=== PATIENT | male | born 1935 | race Native Hawaiian/Other Pacific Islander ===

== ENCOUNTER 2020-07-27 10:00 | Inpatient (IN) | payer OTHER | END 2020-08-10 09:00 | disposition still patient (30) | LOC: PAVC 10:00 | PROVIDERS: ADMIT Internal Medicine; ATTEND Internal Medicine ==

== ENCOUNTER 2020-07-29 07:00 | Outpatient (CLI) | payer OTHER ==
[2020-08-12 09:47] LABS: PLATELET COUNT 233 K/uL (142-355)
[2020-08-12 09:49] LABS: POTASSIUM 6.1 mmol/L (3.6-5.2)
== END 2020-07-29 09:00 | disposition home or self-care (01) ==
LOC: LAB 07:00
PROVIDERS: ATTEND Internal Medicine
DX: I50.9 Heart failure, unspecified (principal); E88.09 Other disorders of plasma-protein metabolism, not elsewhere classified; I25.10 Atherosclerotic heart disease of native coronary artery without angina pectoris; J44.9 Chronic obstructive pulmonary disease, unspecified; N18.9 Chronic kidney disease, unspecified; N40.1 Benign prostatic hyperplasia with lower urinary tract symptoms; I12.9 Hypertensive chronic kidney disease with stage 1 through stage 4 chronic kidney disease, or unspecified chronic kidney disease; G47.33 Obstructive sleep apnea (adult) (pediatric); I48.20 Chronic atrial fibrillation, unspecified; Z79.01 Long term (current) use of anticoagulants; Z86.718 Personal history of other venous thrombosis and embolism; Z79.899 Other long term (current) drug therapy
CPT/HCPCS: 80053; 80061; 82306; 82607; 82728; 83036; 83540; 83880; 84153; 84443; 85027; 87081

== ENCOUNTER 2020-07-31 14:46 | Outpatient (CLI) | payer OTHER ==
[~2020-07-31] VITALS: Ht 182.9 cm; Wt 97.5 kg
== END 2020-07-31 23:35 | disposition home or self-care (01) ==
LOC: INF 14:46
PROVIDERS: ATTEND Internal Medicine
DX: N18.9 Chronic kidney disease, unspecified (principal)
CPT/HCPCS: 96372; J0885

== ENCOUNTER 2020-08-07 06:05 | Outpatient (CLI) | payer OTHER ==
[~2020-08-07] VITALS: Ht 182.9 cm; Wt 97.5 kg
== END 2020-08-07 23:59 | disposition home or self-care (01) ==
LOC: LAB 06:05
PROVIDERS: ATTEND Internal Medicine
DX: N18.9 Chronic kidney disease, unspecified (principal)
CPT/HCPCS: 36415; 85014; 85018

== ENCOUNTER 2020-08-07 12:40 | Outpatient (CLI) | payer OTHER ==
[~2020-08-07] VITALS: Ht 182.9 cm; Wt 97.5 kg
== END 2020-08-07 13:45 | disposition home or self-care (01) ==
LOC: INF 12:40
PROVIDERS: ATTEND Internal Medicine
DX: N18.9 Chronic kidney disease, unspecified (principal)
CPT/HCPCS: 96372; J0885

== ENCOUNTER 2020-08-10 09:00 | Inpatient (IN) | payer OTHER | END 2020-09-10 08:00 | disposition still patient (30) | LOC: PAVC 09:00 | PROVIDERS: ADMIT Internal Medicine; ATTEND Internal Medicine ==

== ENCOUNTER 2020-08-14 07:38 | Outpatient (CLI) | payer OTHER | END 2020-08-14 23:00 | disposition home or self-care (01) | LOC: LAB 07:38 | PROVIDERS: ATTEND Internal Medicine | DX: N18.9 Chronic kidney disease, unspecified (principal); D63.1 Anemia in chronic kidney disease | CPT/HCPCS: 85014; 85018 ==

== ENCOUNTER 2020-08-15 10:15 | Outpatient (CLI) | payer OTHER ==
[~2020-08-15] VITALS: Ht 182.9 cm; Wt 97.5 kg
[2020-08-15 10:48] VITALS: BP 87/44; TEMP 97.4
== END 2020-08-15 19:14 | disposition home or self-care (01) ==
LOC: INF 10:15
PROVIDERS: ATTEND Internal Medicine
DX: N18.9 Chronic kidney disease, unspecified (principal)
CPT/HCPCS: 96372; J0885

== ENCOUNTER 2020-08-21 06:36 | Outpatient (CLI) | payer OTHER ==
[~2020-08-21] VITALS: Ht 182.9 cm; Wt 97.5 kg
== END 2020-08-21 21:04 | disposition home or self-care (01) ==
LOC: LAB 06:36 → INF 06:36
PROVIDERS: ATTEND Internal Medicine
DX: D64.9 Anemia, unspecified (principal)
CPT/HCPCS: 85014; 85018; 96372; J0885

== ENCOUNTER 2020-08-28 05:21 | Outpatient (CLI) | payer OTHER ==
[~2020-08-28] VITALS: Ht 182.9 cm; Wt 97.5 kg
== END 2020-08-28 19:12 | disposition home or self-care (01) ==
LOC: INF 05:21 → LAB 05:21 → INF 19:12
PROVIDERS: ATTEND Internal Medicine
DX: N18.9 Chronic kidney disease, unspecified (principal); D63.1 Anemia in chronic kidney disease
CPT/HCPCS: 85014; 85018; 96372; J0885

== ENCOUNTER 2020-08-30 01:08 | Outpatient (CLI) | payer OTHER | END 2020-08-30 19:19 | disposition home or self-care (01) | LOC: LAB 01:08 | PROVIDERS: ATTEND Internal Medicine | DX: R36.9 Urethral discharge, unspecified (principal); R82.998 Other abnormal findings in urine | CPT/HCPCS: 81000; 87077; 87086; 87088; 87186 ==

== ENCOUNTER 2020-08-30 21:40 | Emergency (ER) | payer OTHER ==
[~2020-08-30] VITALS: Ht 185.4 cm; Wt 93.0 kg
[2020-08-30 21:40] VITALS: TEMP 98.1
[2020-08-30 22:13] LABS: PLATELET COUNT 369 K/uL (142-355)
[2020-08-30 22:22] LABS: POTASSIUM 4.6 mmol/L (3.6-5.2); SODIUM 136 mmol/L (136-145)
[2020-08-30 22:44] LABS: PARTIAL THROMBOPLASTIN TIME 28.8 SECONDS (24.5-33.6)
[2020-08-30 23:25] VITALS: BP 104/52
== END 2020-08-30 23:20 ==
LOC: ED 21:54
PROVIDERS: Family Medicine
DX: I48.91 Unspecified atrial fibrillation (principal); N39.0 Urinary tract infection, site not specified; I50.9 Heart failure, unspecified
CPT/HCPCS: 36415; 80053; 82550; 83880; 84484; 85027; 85610; 85730; 93005; 96365; 99284; J0696

== ENCOUNTER 2020-09-04 07:04 | Outpatient (CLI) | payer OTHER | END 2020-09-04 20:50 | disposition home or self-care (01) | LOC: LAB 07:04 | PROVIDERS: ATTEND Internal Medicine | DX: D64.89 Other specified anemias (principal) | CPT/HCPCS: 36415; 85014; 85018 ==

== ENCOUNTER 2020-09-10 09:00 | Inpatient (IN) | payer OTHER | END 2020-10-11 13:49 | disposition still patient (30) | LOC: PAVC 09:00 | PROVIDERS: ADMIT Internal Medicine; ATTEND Internal Medicine ==

== ENCOUNTER 2020-09-11 09:18 | Outpatient (CLI) | payer OTHER | END 2020-09-11 22:38 | disposition home or self-care (01) | LOC: LAB 09:18 | PROVIDERS: ATTEND Internal Medicine | DX: N18.9 Chronic kidney disease, unspecified (principal); D63.1 Anemia in chronic kidney disease | CPT/HCPCS: 85014; 85018 ==

== ENCOUNTER 2020-09-18 11:13 | Outpatient (CLI) | payer OTHER | END 2020-09-18 21:45 | disposition home or self-care (01) | LOC: LAB 11:13 | PROVIDERS: ATTEND Internal Medicine | DX: N18.9 Chronic kidney disease, unspecified (principal); D63.1 Anemia in chronic kidney disease | CPT/HCPCS: 85014; 85018 ==

== ENCOUNTER 2020-09-23 06:16 | Outpatient (CLI) | payer OTHER ==
[2020-09-23 08:43] LABS: POTASSIUM 4.7 mmol/L (3.6-5.2)
== END 2020-09-23 18:58 | disposition home or self-care (01) ==
LOC: LAB 06:16
PROVIDERS: ATTEND Internal Medicine
DX: I50.9 Heart failure, unspecified (principal)
CPT/HCPCS: 80053

== ENCOUNTER 2020-09-25 08:12 | Outpatient (CLI) | payer OTHER | END 2020-09-25 19:07 | disposition home or self-care (01) | LOC: LAB 08:12 | PROVIDERS: ATTEND Internal Medicine | DX: N18.9 Chronic kidney disease, unspecified (principal); D63.1 Anemia in chronic kidney disease | CPT/HCPCS: 85014; 85018 ==

== ENCOUNTER 2020-10-02 07:17 | Outpatient (CLI) | payer OTHER | END 2020-10-02 21:41 | disposition home or self-care (01) | LOC: LAB 07:17 | PROVIDERS: ATTEND Internal Medicine | DX: I50.9 Heart failure, unspecified (principal); D63.1 Anemia in chronic kidney disease | CPT/HCPCS: 80162; 85014; 85018 ==

== ENCOUNTER 2020-10-05 06:14 | Outpatient (CLI) | payer OTHER | END 2020-10-05 20:01 | disposition home or self-care (01) | LOC: LAB 06:14 | PROVIDERS: ATTEND Internal Medicine | DX: I50.9 Heart failure, unspecified (principal) | CPT/HCPCS: 80162 ==

== ENCOUNTER 2020-10-09 06:30 | Outpatient (CLI) | payer OTHER | END 2020-10-09 19:04 | disposition home or self-care (01) | LOC: LAB 06:30 | PROVIDERS: ATTEND Internal Medicine | DX: N18.9 Chronic kidney disease, unspecified (principal); D63.1 Anemia in chronic kidney disease | CPT/HCPCS: 85014; 85018 ==

== ENCOUNTER 2020-10-11 13:58 | Inpatient (IN) | payer OTHER | END 2020-11-10 09:38 | disposition still patient (30) | LOC: PAVC 13:58 | PROVIDERS: ADMIT Internal Medicine; ATTEND Internal Medicine ==

== ENCOUNTER 2020-10-12 07:16 | Outpatient (CLI) | payer OTHER | END 2020-10-12 20:33 | disposition home or self-care (01) | LOC: LAB 07:16 | PROVIDERS: ATTEND Internal Medicine | DX: I48.20 Chronic atrial fibrillation, unspecified (principal); I50.9 Heart failure, unspecified | CPT/HCPCS: 80162 ==

== ENCOUNTER 2020-10-16 11:39 | Outpatient (CLI) | payer OTHER | END 2020-10-16 18:56 | disposition home or self-care (01) | LOC: LAB 11:39 | PROVIDERS: ATTEND Internal Medicine | DX: N18.9 Chronic kidney disease, unspecified (principal); D63.1 Anemia in chronic kidney disease; E88.09 Other disorders of plasma-protein metabolism, not elsewhere classified | CPT/HCPCS: 85014; 85018 ==

== ENCOUNTER 2020-10-23 07:29 | Outpatient (CLI) | payer OTHER | END 2020-10-23 22:06 | disposition home or self-care (01) | LOC: LAB 07:29 | PROVIDERS: ATTEND Internal Medicine | DX: N18.9 Chronic kidney disease, unspecified (principal); D63.1 Anemia in chronic kidney disease | CPT/HCPCS: 85014; 85018 ==

== ENCOUNTER 2020-10-30 06:20 | Outpatient (CLI) | payer OTHER | END 2020-10-30 20:10 | disposition home or self-care (01) | LOC: LAB 06:20 | PROVIDERS: ATTEND Internal Medicine | DX: N18.9 Chronic kidney disease, unspecified (principal); D63.1 Anemia in chronic kidney disease | CPT/HCPCS: 85014; 85018 ==

== ENCOUNTER 2020-11-02 06:50 | Outpatient (CLI) | payer OTHER | END 2020-11-02 19:05 | disposition home or self-care (01) | LOC: LAB 06:50 | PROVIDERS: ATTEND Internal Medicine | DX: I25.10 Atherosclerotic heart disease of native coronary artery without angina pectoris (principal) | CPT/HCPCS: 36415; 80162 ==

== ENCOUNTER 2020-11-06 07:20 | Outpatient (CLI) | payer OTHER | END 2020-11-06 19:21 | disposition home or self-care (01) | LOC: LAB 07:20 | PROVIDERS: ATTEND Internal Medicine | DX: N18.9 Chronic kidney disease, unspecified (principal); D63.1 Anemia in chronic kidney disease | CPT/HCPCS: 85014; 85018 ==

== ENCOUNTER 2020-11-13 11:12 | Outpatient (CLI) | payer OTHER | END 2020-11-13 21:09 | disposition home or self-care (01) | LOC: LAB 11:12 | PROVIDERS: ATTEND Internal Medicine | DX: D63.1 Anemia in chronic kidney disease (principal) | CPT/HCPCS: 85014; 85018 ==

== ENCOUNTER 2020-11-20 07:49 | Outpatient (CLI) | payer OTHER | END 2020-11-20 19:06 | disposition home or self-care (01) | LOC: LAB 07:49 | PROVIDERS: ATTEND Internal Medicine | DX: N18.9 Chronic kidney disease, unspecified (principal); D63.1 Anemia in chronic kidney disease | CPT/HCPCS: 85014; 85018 ==

== ENCOUNTER 2020-11-20 12:45 | Outpatient (CLI) | payer OTHER | END 2020-11-20 19:35 | disposition home or self-care (01) | LOC: RAD 12:45 | PROVIDERS: ATTEND Internal Medicine | DX: J44.9 Chronic obstructive pulmonary disease, unspecified (principal); R06.2 Wheezing; R09.89 Other specified symptoms and signs involving the circulatory and respiratory systems ==

== ENCOUNTER 2020-11-27 07:07 | Outpatient (CLI) | payer OTHER | END 2020-11-27 20:03 | disposition home or self-care (01) | LOC: LAB 07:07 | PROVIDERS: ATTEND Internal Medicine | DX: N18.9 Chronic kidney disease, unspecified (principal); D63.1 Anemia in chronic kidney disease | CPT/HCPCS: 85014; 85018 ==

== ENCOUNTER 2020-12-02 06:45 | Outpatient (CLI) | payer OTHER | END 2020-12-02 19:16 | disposition home or self-care (01) | LOC: LAB 06:45 | PROVIDERS: ATTEND Internal Medicine | DX: I11.0 Hypertensive heart disease with heart failure (principal); I50.9 Heart failure, unspecified; I48.20 Chronic atrial fibrillation, unspecified | CPT/HCPCS: 80162 ==

== ENCOUNTER 2020-12-04 07:57 | Outpatient (CLI) | payer OTHER | END 2020-12-04 19:00 | disposition home or self-care (01) | LOC: LAB 07:57 | PROVIDERS: ATTEND Internal Medicine | DX: N18.9 Chronic kidney disease, unspecified (principal); D63.1 Anemia in chronic kidney disease | CPT/HCPCS: 85014; 85018 ==

== ENCOUNTER 2020-12-11 07:48 | Outpatient (CLI) | payer OTHER | END 2020-12-11 19:18 | disposition home or self-care (01) | LOC: LAB 07:48 | PROVIDERS: ATTEND Internal Medicine | DX: N18.9 Chronic kidney disease, unspecified (principal); D63.1 Anemia in chronic kidney disease | CPT/HCPCS: 36415; 85014; 85018 ==

== ENCOUNTER 2020-12-18 08:05 | Outpatient (CLI) | payer OTHER | END 2020-12-18 19:12 | disposition home or self-care (01) | LOC: LAB 08:05 | PROVIDERS: ATTEND Internal Medicine | DX: N18.9 Chronic kidney disease, unspecified (principal); D63.1 Anemia in chronic kidney disease | CPT/HCPCS: 85014; 85018 ==

== ENCOUNTER 2020-12-25 05:59 | Outpatient (CLI) | payer OTHER | END 2020-12-25 21:45 | disposition home or self-care (01) | LOC: LAB 05:59 | PROVIDERS: ATTEND Internal Medicine | DX: N18.9 Chronic kidney disease, unspecified (principal); D63.1 Anemia in chronic kidney disease | CPT/HCPCS: 36415; 85014; 85018 ==

== ENCOUNTER 2021-01-01 06:59 | Outpatient (CLI) | payer OTHER | END 2021-01-01 19:30 | disposition home or self-care (01) | LOC: LAB 06:59 | PROVIDERS: ATTEND Internal Medicine | DX: I48.20 Chronic atrial fibrillation, unspecified (principal); N18.9 Chronic kidney disease, unspecified; D63.1 Anemia in chronic kidney disease | CPT/HCPCS: 80162; 85014; 85018 ==

== ENCOUNTER 2021-01-08 05:49 | Outpatient (CLI) | payer OTHER | END 2021-01-08 19:44 | disposition home or self-care (01) | LOC: LAB 05:49 | PROVIDERS: ATTEND Internal Medicine | DX: N18.9 Chronic kidney disease, unspecified (principal); D63.1 Anemia in chronic kidney disease | CPT/HCPCS: 36415; 85014; 85018 ==

== ENCOUNTER 2021-01-10 09:43 | Outpatient (CLI) | payer OTHER ==
[2021-01-10 10:18] LABS: PLATELET COUNT 222 K/uL (142-355)
[2021-01-10 10:30] LABS: POTASSIUM 4.7 mmol/L (3.6-5.2)
== END 2021-01-10 20:18 | disposition home or self-care (01) ==
LOC: LAB 09:43
PROVIDERS: ATTEND Internal Medicine
DX: I11.0 Hypertensive heart disease with heart failure (principal); I50.9 Heart failure, unspecified; N18.9 Chronic kidney disease, unspecified; I25.10 Atherosclerotic heart disease of native coronary artery without angina pectoris; I48.20 Chronic atrial fibrillation, unspecified
CPT/HCPCS: 36415; 80053; 84443; 85027

== ENCOUNTER 2021-01-10 11:34 | Inpatient (IN) | payer OTHER | END 2021-02-10 09:07 | disposition still patient (30) | LOC: PAVC 11:34 | PROVIDERS: ADMIT Internal Medicine; ATTEND Internal Medicine ==

== ENCOUNTER 2021-01-15 07:08 | Outpatient (CLI) | payer OTHER | END 2021-01-15 18:56 | disposition home or self-care (01) | LOC: LAB 07:08 | PROVIDERS: ATTEND Internal Medicine | DX: N18.9 Chronic kidney disease, unspecified (principal); D63.1 Anemia in chronic kidney disease | CPT/HCPCS: 85014; 85018 ==

== ENCOUNTER → 2021-01-22 | Outpatient (CLI) | payer OTHER | LOC: LAB 07:33 | PROVIDERS: ATTEND Internal Medicine | DX: N18.9 Chronic kidney disease, unspecified (principal); D63.1 Anemia in chronic kidney disease | CPT/HCPCS: 85014; 85018 ==

== ENCOUNTER 2021-01-29 07:46 | Outpatient (CLI) | payer OTHER | END 2021-01-29 18:57 | disposition home or self-care (01) | LOC: LAB 07:46 | PROVIDERS: ATTEND Internal Medicine | DX: N18.9 Chronic kidney disease, unspecified (principal); D63.1 Anemia in chronic kidney disease | CPT/HCPCS: 85014; 85018 ==

== ENCOUNTER 2021-02-01 07:16 | Outpatient (CLI) | payer OTHER | END 2021-02-01 19:19 | disposition home or self-care (01) | LOC: LAB 07:16 | PROVIDERS: ATTEND Internal Medicine | DX: I48.20 Chronic atrial fibrillation, unspecified (principal) | CPT/HCPCS: 80162 ==

== ENCOUNTER 2021-02-05 05:52 | Outpatient (CLI) | payer OTHER | END 2021-02-05 18:50 | disposition home or self-care (01) | LOC: LAB 05:52 | PROVIDERS: ATTEND Internal Medicine | DX: N18.9 Chronic kidney disease, unspecified (principal); D63.1 Anemia in chronic kidney disease | CPT/HCPCS: 36415; 85014; 85018 ==

== ENCOUNTER 2021-02-10 09:22 | Inpatient (IN) | payer OTHER | END 2021-03-13 08:56 | disposition still patient (30) | LOC: PAVC 09:22 | PROVIDERS: ADMIT Internal Medicine; ATTEND Internal Medicine ==

== ENCOUNTER 2021-02-12 07:20 | Outpatient (CLI) | payer OTHER | END 2021-02-12 18:47 | disposition home or self-care (01) | LOC: LAB 07:20 | PROVIDERS: ATTEND Internal Medicine | DX: N18.9 Chronic kidney disease, unspecified (principal); D63.1 Anemia in chronic kidney disease | CPT/HCPCS: 85014; 85018 ==

== ENCOUNTER 2021-02-19 06:45 | Outpatient (CLI) | payer OTHER | END 2021-02-19 19:28 | disposition home or self-care (01) | LOC: LAB 06:45 | PROVIDERS: ATTEND Internal Medicine | DX: N18.9 Chronic kidney disease, unspecified (principal); D63.1 Anemia in chronic kidney disease | CPT/HCPCS: 85014; 85018 ==

== ENCOUNTER 2021-02-26 07:36 | Outpatient (CLI) | payer OTHER | END 2021-02-26 20:21 | disposition home or self-care (01) | LOC: LAB 07:36 | PROVIDERS: ATTEND Internal Medicine | DX: N18.9 Chronic kidney disease, unspecified (principal); D63.1 Anemia in chronic kidney disease | CPT/HCPCS: 85014; 85018 ==

== ENCOUNTER 2021-03-04 07:52 | Outpatient (CLI) | payer OTHER | END 2021-03-04 20:52 | disposition home or self-care (01) | LOC: LAB 07:52 | PROVIDERS: ATTEND Internal Medicine | DX: N18.9 Chronic kidney disease, unspecified (principal); D63.1 Anemia in chronic kidney disease; I50.9 Heart failure, unspecified | CPT/HCPCS: 80162; 85014; 85018 ==

== ENCOUNTER 2021-03-12 07:31 | Outpatient (CLI) | payer OTHER | END 2021-03-12 19:00 | disposition home or self-care (01) | LOC: LAB 07:31 | PROVIDERS: ATTEND Internal Medicine | DX: N18.9 Chronic kidney disease, unspecified (principal); D63.1 Anemia in chronic kidney disease | CPT/HCPCS: 85014; 85018 ==

== ENCOUNTER 2021-03-13 12:45 | Inpatient (IN) | payer OTHER | END 2021-04-10 09:07 | disposition still patient (30) | LOC: PAVC 12:45 | PROVIDERS: ADMIT Internal Medicine; ATTEND Internal Medicine ==

== ENCOUNTER 2021-03-19 06:21 | Outpatient (CLI) | payer OTHER | END 2021-03-19 18:55 | disposition home or self-care (01) | LOC: LAB 06:21 | PROVIDERS: ATTEND Internal Medicine | DX: N18.9 Chronic kidney disease, unspecified (principal); D63.1 Anemia in chronic kidney disease | CPT/HCPCS: 85014; 85018 ==

== ENCOUNTER 2021-03-26 06:23 | Outpatient (CLI) | payer OTHER | END 2021-03-26 18:54 | disposition home or self-care (01) | LOC: LAB 06:23 | PROVIDERS: ATTEND Internal Medicine | DX: N18.9 Chronic kidney disease, unspecified (principal); D63.1 Anemia in chronic kidney disease | CPT/HCPCS: 85014; 85018 ==

== ENCOUNTER 2021-03-29 18:59 | Outpatient (CLI) | payer OTHER | END 2021-03-29 19:16 | disposition home or self-care (01) | LOC: LAB 18:59 | PROVIDERS: ATTEND Internal Medicine | DX: R19.5 Other fecal abnormalities (principal) | CPT/HCPCS: 82272 ==

== ENCOUNTER 2021-04-02 08:19 | Outpatient (CLI) | payer OTHER | END 2021-04-02 18:50 | disposition home or self-care (01) | LOC: LAB 08:19 | PROVIDERS: ATTEND Internal Medicine | DX: N18.9 Chronic kidney disease, unspecified (principal); D63.1 Anemia in chronic kidney disease | CPT/HCPCS: 85014; 85018 ==

== ENCOUNTER 2021-04-03 14:14 | Outpatient (CLI) | payer OTHER | END 2021-04-03 18:57 | disposition home or self-care (01) | LOC: RAD 14:14 | PROVIDERS: ATTEND Internal Medicine | DX: G89.11 Acute pain due to trauma (principal); M25.512 Pain in left shoulder; M25.532 Pain in left wrist; M79.602 Pain in left arm ==

== ENCOUNTER 2021-04-04 07:07 | Outpatient (CLI) | payer OTHER | END 2021-04-04 19:08 | disposition home or self-care (01) | LOC: LAB 07:07 | PROVIDERS: ATTEND Internal Medicine | DX: I48.20 Chronic atrial fibrillation, unspecified (principal) | CPT/HCPCS: 80162 ==

== ENCOUNTER 2021-04-09 06:56 | Outpatient (CLI) | payer OTHER | END 2021-04-09 18:46 | disposition home or self-care (01) | LOC: LAB 06:56 | PROVIDERS: ATTEND Internal Medicine | DX: N18.9 Chronic kidney disease, unspecified (principal); D63.1 Anemia in chronic kidney disease | CPT/HCPCS: 85014; 85018 ==

== ENCOUNTER 2021-04-10 13:53 | Inpatient (IN) | payer OTHER | END 2021-05-11 14:12 | disposition still patient (30) | LOC: PAVC 13:53 | PROVIDERS: ADMIT Internal Medicine; ATTEND Internal Medicine ==

== ENCOUNTER 2021-04-16 06:27 | Outpatient (CLI) | payer OTHER | END 2021-04-16 19:06 | disposition home or self-care (01) | LOC: LAB 06:27 | PROVIDERS: ATTEND Internal Medicine | DX: N18.9 Chronic kidney disease, unspecified (principal); D63.1 Anemia in chronic kidney disease | CPT/HCPCS: 85014; 85018 ==

== ENCOUNTER 2021-04-18 12:05 | Emergency (ER) | payer OTHER ==
[~2021-04-18] VITALS: Ht 185.4 cm; Wt 93.0 kg
[2021-04-18 12:05] VITALS: TEMP 97.8
[2021-04-18 15:00] VITALS: BP 108/38
== END 2021-04-18 15:05 | disposition home or self-care (01) ==
LOC: ED 12:05
DX: Z03.89 Encounter for observation for other suspected diseases and conditions ruled out (principal)
CPT/HCPCS: 99283

== ENCOUNTER 2021-04-23 06:43 | Outpatient (CLI) | payer OTHER | END 2021-04-23 18:50 | disposition home or self-care (01) | LOC: LAB 06:43 | PROVIDERS: ATTEND Internal Medicine | DX: N18.9 Chronic kidney disease, unspecified (principal); D63.1 Anemia in chronic kidney disease | CPT/HCPCS: 85014; 85018 ==

== ENCOUNTER 2021-04-30 05:53 | Outpatient (CLI) | payer OTHER | END 2021-04-30 19:02 | disposition home or self-care (01) | LOC: LAB 05:53 | PROVIDERS: ATTEND Internal Medicine | DX: N18.9 Chronic kidney disease, unspecified (principal); D63.1 Anemia in chronic kidney disease | CPT/HCPCS: 85014; 85018 ==

== ENCOUNTER 2021-05-02 06:52 | Outpatient (CLI) | payer OTHER | END 2021-05-02 18:50 | disposition home or self-care (01) | LOC: LAB 06:52 | PROVIDERS: ATTEND Internal Medicine | DX: I48.20 Chronic atrial fibrillation, unspecified (principal) | CPT/HCPCS: 80162 ==

== ENCOUNTER 2021-05-07 06:58 | Outpatient (CLI) | payer OTHER | END 2021-05-07 18:50 | disposition home or self-care (01) | LOC: LAB 06:58 | PROVIDERS: ATTEND Internal Medicine | DX: N18.9 Chronic kidney disease, unspecified (principal); D63.1 Anemia in chronic kidney disease | CPT/HCPCS: 85014; 85018 ==

== ENCOUNTER 2021-05-11 15:19 | Inpatient (IN) | payer OTHER ==
[2021-06-04] MEDS ORDERED: AMOX500C85 PO (00:09)
== END 2021-06-10 10:35 | disposition still patient (30) ==
LOC: PAVC 15:19
PROVIDERS: ADMIT Internal Medicine; ATTEND Internal Medicine

== ENCOUNTER 2021-05-14 06:56 | Outpatient (CLI) | payer OTHER | END 2021-05-14 19:04 | disposition home or self-care (01) | LOC: LAB 06:56 | PROVIDERS: ATTEND Internal Medicine | DX: N18.9 Chronic kidney disease, unspecified (principal); D63.1 Anemia in chronic kidney disease | CPT/HCPCS: 85014; 85018 ==

== ENCOUNTER 2021-05-28 08:04 | Outpatient (CLI) | payer OTHER | END 2021-05-28 19:08 | disposition home or self-care (01) | LOC: LAB 08:04 | PROVIDERS: ATTEND Internal Medicine | DX: N18.9 Chronic kidney disease, unspecified (principal); D63.1 Anemia in chronic kidney disease | CPT/HCPCS: 85014; 85018 ==

== ENCOUNTER 2021-06-02 08:34 | Outpatient (CLI) | payer OTHER | END 2021-06-02 19:41 | disposition home or self-care (01) | LOC: LAB 08:34 | PROVIDERS: ATTEND Internal Medicine | DX: I48.20 Chronic atrial fibrillation, unspecified (principal) | CPT/HCPCS: 80162 ==

== ENCOUNTER 2021-06-04 07:32 | Outpatient (CLI) | payer OTHER | END 2021-06-04 20:42 | disposition home or self-care (01) | LOC: LAB 07:32 | PROVIDERS: ATTEND Internal Medicine | DX: N18.9 Chronic kidney disease, unspecified (principal); D63.1 Anemia in chronic kidney disease | CPT/HCPCS: 85014; 85018 ==

== ENCOUNTER 2021-06-10 02:16 | Inpatient (IN) | payer OTHER ==
[~2021-06-10 02:16] MED LIST: AMOX500C85 PO
[2021-06-12] MEDS ORDERED: [UNRECOGNIZED DRUG - CODE] SC (22:46)
[2021-06-12] MEDS ORDERED: ASPIRIN/ENTERIC81 MG PO (22:49)
[2021-06-12] MEDS ORDERED: LIPITOR40 MG PO (22:50)
[2021-06-12] MEDS ORDERED: CORRECTOL100 MG PO (22:51)
[2021-06-12] MEDS ORDERED: VITAMIN DE1000 MCG/M IM (22:52)
[2021-06-12] MEDS ORDERED: DIGOX125 MCG PO (22:54)
[2021-06-12] MEDS ORDERED: TAMSULOSIN HYD0.4 MG PO (22:55)
[2021-06-12] MEDS ORDERED: FLUTICASON50 MCG/AC1 NAS (22:56)
[2021-06-12] MEDS ORDERED: FUROSEMIDE40 MG PO (23:01)
[2021-06-12] MEDS ORDERED: ZIPRASIDONE HCL20 MG PO (23:02)
[2021-06-12] MEDS ORDERED: MIRALAX17 GM PO (23:03)
[2021-06-12] MEDS ORDERED: MULTIVITAMIN1 TAB PO (23:04)
[2021-06-12] MEDS ORDERED: OMEPRAZOLE40 MG PO (23:05)
[2021-06-12] MEDS ORDERED: PANTOPRAZOLE SO40 M1 PO (23:07)
[2021-06-12] MEDS ORDERED: VITAMIN D2000 UNIT PO (23:21)
[2021-06-12] MEDS ORDERED: ZINC220 M1 PO (23:22)
[2021-06-12] MEDS ORDERED: CETI10TA PO (23:23)
[2021-06-12] MEDS ORDERED: CALCIUM600 M1 PO (23:25)
[2021-06-12] MEDS ORDERED: APIX1TAB PO (23:26)
[2021-06-13] MEDS ORDERED: ARTIFICIA5 OPTH (00:10)
[2021-06-13] MEDS ORDERED: ALUM-67 PO (00:13)
[2021-06-13] MEDS ORDERED: MELATONIN MAXIM10 MG PO (00:14)
[2021-06-13] MEDS ORDERED: MIRALAX17 GM PO (00:16)
[2021-06-13] MEDS ORDERED: [UNRECOGNIZED DRUG - OTHER] PO (00:18)
[2021-06-13] MEDS ORDERED: PREPARATION RE (00:19)
[2021-06-13] MEDS ORDERED: PROCTOZONE-HC2.5 % EX (00:22)
[2021-06-13] MEDS ORDERED: MAPAP500 MG PO (00:23)
[2021-06-26] MEDS ORDERED: ATOR20TA2 PO (14:04)
[2021-06-26] MEDS ORDERED: DOCU100C10 PO (14:05)
[2021-06-26] MEDS ORDERED: CETI10TA PO (14:05)
[2021-06-26] MEDS ORDERED: DIGO0.1230 PO (14:05)
[2021-06-26] MEDS ORDERED: Artificial Tears 0.2 OPTH (14:06)
[2021-06-26] MEDS ORDERED: INSU100P SC (14:06)
[2021-06-26] MEDS ORDERED: FURO40TA93 PO (14:06)
[2021-06-26] MEDS ORDERED: PANTOPRAZOLE 40MG TA PO (14:07)
[2021-06-26] MEDS ORDERED: TAMS0.4C PO (14:07)
[2021-06-26] MEDS ORDERED: MIRALAX 17GM PAK PO (14:07)
[2021-06-26] MEDS ORDERED: OLAN2.5T2 PO (14:07)
== END 2021-07-11 09:56 | disposition still patient (30) ==
LOC: PAVC 02:16
PROVIDERS: ADMIT Internal Medicine; ATTEND Internal Medicine

== ENCOUNTER 2021-06-11 08:54 | Outpatient (CLI) | payer OTHER ==
[2021-06-12] MEDS ORDERED: [UNRECOGNIZED DRUG - CODE] SC (22:46)
[2021-06-12] MEDS ORDERED: ASPIRIN/ENTERIC81 MG PO (22:49)
[2021-06-12] MEDS ORDERED: LIPITOR40 MG PO (22:50)
[2021-06-12] MEDS ORDERED: CORRECTOL100 MG PO (22:51)
[2021-06-12] MEDS ORDERED: VITAMIN DE1000 MCG/M IM (22:52)
[2021-06-12] MEDS ORDERED: DIGOX125 MCG PO (22:54)
[2021-06-12] MEDS ORDERED: TAMSULOSIN HYD0.4 MG PO (22:55)
[2021-06-12] MEDS ORDERED: FLUTICASON50 MCG/AC1 NAS (22:56)
[2021-06-12] MEDS ORDERED: FUROSEMIDE40 MG PO (23:01)
[2021-06-12] MEDS ORDERED: ZIPRASIDONE HCL20 MG PO (23:02)
[2021-06-12] MEDS ORDERED: MIRALAX17 GM PO (23:03)
[2021-06-12] MEDS ORDERED: MULTIVITAMIN1 TAB PO (23:04)
[2021-06-12] MEDS ORDERED: OMEPRAZOLE40 MG PO (23:05)
[2021-06-12] MEDS ORDERED: PANTOPRAZOLE SO40 M1 PO (23:07)
[2021-06-12] MEDS ORDERED: VITAMIN D2000 UNIT PO (23:21)
[2021-06-12] MEDS ORDERED: ZINC220 M1 PO (23:22)
[2021-06-12] MEDS ORDERED: CETI10TA PO (23:23)
[2021-06-12] MEDS ORDERED: CALCIUM600 M1 PO (23:25)
[2021-06-12] MEDS ORDERED: APIX1TAB PO (23:26)
== END 2021-06-11 18:55 | disposition home or self-care (01) ==
LOC: LAB 08:54
PROVIDERS: ATTEND Internal Medicine
DX: D64.89 Other specified anemias (principal)
CPT/HCPCS: 85014; 85018

== ENCOUNTER 2021-07-01 07:45 | Outpatient (CLI) | payer OTHER ==
[~2021-07-01 07:45] MED LIST changes: +ALUM-67 PO; +APIX1TAB PO; +ARTIFICIA5 OPTH; +ASPIRIN/ENTERIC81 MG PO; +ATOR20TA2 PO; +Artificial Tears 0.2 OPTH; +CALCIUM600 M1 PO; +CETI10TA PO; +CORRECTOL100 MG PO; +DIGO0.1230 PO; +DIGOX125 MCG PO; +DOCU100C10 PO; +FLUTICASON50 MCG/AC1 NAS; +FURO40TA93 PO; +FUROSEMIDE40 MG PO; +INSU100P SC; +LIPITOR40 MG PO; +MAPAP500 MG PO; +MELATONIN MAXIM10 MG PO; +MIRALAX 17GM PAK PO; +MIRALAX17 GM PO; +MULTIVITAMIN1 TAB PO; +OLAN2.5T2 PO; +OMEPRAZOLE40 MG PO; +PANTOPRAZOLE 40MG TA PO; +PANTOPRAZOLE SO40 M1 PO; +PREPARATION RE; +PROCTOZONE-HC2.5 % EX; +TAMS0.4C PO; +TAMSULOSIN HYD0.4 MG PO; +VITAMIN D2000 UNIT PO; +VITAMIN DE1000 MCG/M IM; +ZINC220 M1 PO; +ZIPRASIDONE HCL20 MG PO; +[UNRECOGNIZED DRUG - CODE] SC; +[UNRECOGNIZED DRUG - OTHER] PO
== END 2021-07-01 19:13 | disposition home or self-care (01) ==
LOC: LAB 07:45 → RAD 07:45
PROVIDERS: ATTEND Internal Medicine
DX: J44.9 Chronic obstructive pulmonary disease, unspecified (principal)

== ENCOUNTER 2021-07-02 06:56 | Outpatient (CLI) | payer OTHER ==
[2021-07-02 08:05] LABS: POTASSIUM 3.8 mmol/L (3.6-5.2)
[2021-07-02 11:32] LABS: PLATELET COUNT 308 K/uL (142-355)
== END 2021-07-02 18:54 | disposition home or self-care (01) ==
LOC: LAB 06:56
PROVIDERS: ATTEND Internal Medicine
DX: N18.9 Chronic kidney disease, unspecified (principal); D63.1 Anemia in chronic kidney disease
CPT/HCPCS: 80053; 80162; 83605; 85027

== ENCOUNTER 2021-07-03 08:34 | Outpatient (CLI) | payer OTHER | END 2021-07-03 19:27 | disposition home or self-care (01) | LOC: LAB 08:34 | PROVIDERS: ATTEND Internal Medicine | DX: N18.9 Chronic kidney disease, unspecified (principal); D63.1 Anemia in chronic kidney disease | CPT/HCPCS: 82728; 83540 ==

== ENCOUNTER 2021-07-09 07:19 | Outpatient (CLI) | payer OTHER | END 2021-07-09 19:18 | disposition home or self-care (01) | LOC: LAB 07:19 | PROVIDERS: ATTEND Internal Medicine | DX: N18.9 Chronic kidney disease, unspecified (principal); D63.1 Anemia in chronic kidney disease | CPT/HCPCS: 85014; 85018 ==

== ENCOUNTER 2021-07-11 07:57 | Outpatient (CLI) | payer OTHER ==
[2021-07-11 08:16] LABS: PLATELET COUNT 310 K/uL (142-355)
[2021-07-11 08:36] LABS: POTASSIUM 4.5 mmol/L (3.6-5.2)
== END 2021-07-11 19:07 | disposition home or self-care (01) ==
LOC: LAB 07:57
PROVIDERS: ATTEND Internal Medicine
DX: N40.1 Benign prostatic hyperplasia with lower urinary tract symptoms (principal); I50.9 Heart failure, unspecified; I11.0 Hypertensive heart disease with heart failure
CPT/HCPCS: 80053; 84153; 84443; 85027

== ENCOUNTER 2021-07-11 15:44 | Inpatient (IN) | payer OTHER | END 2021-08-10 09:14 | disposition still patient (30) | LOC: PAVC 15:44 | PROVIDERS: ADMIT Internal Medicine; ATTEND Internal Medicine ==

== ENCOUNTER 2021-07-12 16:17 | Outpatient (CLI) | payer OTHER | END 2021-07-12 19:01 | disposition home or self-care (01) | LOC: LAB 16:17 | PROVIDERS: ATTEND Internal Medicine | DX: R79.89 Other specified abnormal findings of blood chemistry (principal) | CPT/HCPCS: 82728; 83540 ==

== ENCOUNTER 2021-07-16 05:53 | Outpatient (CLI) | payer OTHER | END 2021-07-16 18:57 | disposition home or self-care (01) | LOC: LAB 05:53 | PROVIDERS: ATTEND Internal Medicine | DX: N18.9 Chronic kidney disease, unspecified (principal); D63.1 Anemia in chronic kidney disease | CPT/HCPCS: 85014; 85018 ==

== ENCOUNTER 2021-07-23 06:17 | Outpatient (CLI) | payer OTHER | END 2021-07-23 18:55 | disposition home or self-care (01) | LOC: LAB 06:17 | PROVIDERS: ATTEND Internal Medicine | DX: N18.9 Chronic kidney disease, unspecified (principal); D63.1 Anemia in chronic kidney disease | CPT/HCPCS: 85014; 85018 ==

== ENCOUNTER 2021-07-30 05:53 | Outpatient (CLI) | payer OTHER | END 2021-07-30 18:44 | disposition home or self-care (01) | LOC: LAB 05:53 | PROVIDERS: ATTEND Internal Medicine | DX: N18.9 Chronic kidney disease, unspecified (principal); D63.1 Anemia in chronic kidney disease | CPT/HCPCS: 85014; 85018 ==

== ENCOUNTER 2021-08-02 05:57 | Outpatient (CLI) | payer OTHER | END 2021-08-02 19:50 | disposition home or self-care (01) | LOC: LAB 05:57 | PROVIDERS: ATTEND Internal Medicine | DX: I50.9 Heart failure, unspecified (principal); I48.20 Chronic atrial fibrillation, unspecified | CPT/HCPCS: 80162 ==

== ENCOUNTER 2021-08-06 05:59 | Outpatient (CLI) | payer OTHER | END 2021-08-06 19:46 | disposition home or self-care (01) | LOC: LAB 05:59 | PROVIDERS: ATTEND Internal Medicine | DX: N18.9 Chronic kidney disease, unspecified (principal); D63.1 Anemia in chronic kidney disease | CPT/HCPCS: 85014; 85018 ==

== ENCOUNTER 2021-08-10 12:45 | Inpatient (IN) | payer OTHER | END 2021-09-10 09:08 | disposition still patient (30) | LOC: PAVC 12:45 | PROVIDERS: ADMIT Internal Medicine; ATTEND Internal Medicine ==

== ENCOUNTER 2021-08-11 16:26 | Outpatient (CLI) | payer OTHER | END 2021-08-11 19:44 | disposition home or self-care (01) | LOC: LAB 16:26 | PROVIDERS: ATTEND Internal Medicine | DX: R19.5 Other fecal abnormalities (principal); D58.2 Other hemoglobinopathies | CPT/HCPCS: 82272; 85014; 85018 ==

== ENCOUNTER 2021-08-12 18:29 | Outpatient (CLI) | payer OTHER | END 2021-08-12 19:04 | disposition home or self-care (01) | LOC: LAB 18:29 | PROVIDERS: ATTEND Internal Medicine | DX: R19.5 Other fecal abnormalities (principal) | CPT/HCPCS: 83630; 87015; 87045; 87324; 87328; 87329; 87449; 87899 ==

== ENCOUNTER 2021-08-13 06:07 | Outpatient (CLI) | payer OTHER | END 2021-08-13 18:51 | disposition home or self-care (01) | LOC: LAB 06:07 | PROVIDERS: ATTEND Internal Medicine | DX: N18.9 Chronic kidney disease, unspecified (principal); D63.1 Anemia in chronic kidney disease | CPT/HCPCS: 85014; 85018 ==

== ENCOUNTER 2021-08-20 05:58 | Outpatient (CLI) | payer OTHER | END 2021-08-20 18:55 | disposition home or self-care (01) | LOC: LAB 05:58 | PROVIDERS: ATTEND Internal Medicine | DX: D63.1 Anemia in chronic kidney disease (principal) | CPT/HCPCS: 85014; 85018 ==

== ENCOUNTER 2021-08-27 05:48 | Outpatient (CLI) | payer OTHER | END 2021-08-27 18:47 | disposition home or self-care (01) | LOC: LAB 05:48 | PROVIDERS: ATTEND Internal Medicine | DX: N18.9 Chronic kidney disease, unspecified (principal); D63.1 Anemia in chronic kidney disease | CPT/HCPCS: 85014; 85018 ==

== ENCOUNTER 2021-09-02 09:27 | Outpatient (CLI) | payer OTHER | END 2021-09-02 19:00 | disposition home or self-care (01) | LOC: LAB 09:27 | PROVIDERS: ATTEND Internal Medicine | DX: I25.10 Atherosclerotic heart disease of native coronary artery without angina pectoris (principal); D63.1 Anemia in chronic kidney disease; N18.9 Chronic kidney disease, unspecified; I12.9 Hypertensive chronic kidney disease with stage 1 through stage 4 chronic kidney disease, or unspecified chronic kidney disease | CPT/HCPCS: 80162; 85014; 85018 ==

== ENCOUNTER 2021-09-10 07:22 | Outpatient (CLI) | payer OTHER | END 2021-09-10 18:54 | disposition home or self-care (01) | LOC: LAB 07:22 | PROVIDERS: ATTEND Internal Medicine | DX: N18.9 Chronic kidney disease, unspecified (principal); D63.1 Anemia in chronic kidney disease | CPT/HCPCS: 85014; 85018 ==

== ENCOUNTER 2021-09-10 09:52 | Inpatient (IN) | payer OTHER | END 2021-10-11 09:11 | disposition still patient (30) | LOC: PAVC 09:52 | PROVIDERS: ADMIT Internal Medicine; ATTEND Internal Medicine ==

== ENCOUNTER 2021-09-17 06:19 | Outpatient (CLI) | payer OTHER | END 2021-09-17 18:50 | disposition home or self-care (01) | LOC: LAB 06:19 | PROVIDERS: ATTEND Internal Medicine Endocrinology, Diabetes & Metabolism | DX: N18.9 Chronic kidney disease, unspecified (principal); D63.1 Anemia in chronic kidney disease | CPT/HCPCS: 85014; 85018 ==

== ENCOUNTER 2021-09-24 06:06 | Outpatient (CLI) | payer OTHER | END 2021-09-24 19:28 | disposition home or self-care (01) | LOC: LAB 06:06 | PROVIDERS: ATTEND Internal Medicine Endocrinology, Diabetes & Metabolism | DX: N18.9 Chronic kidney disease, unspecified (principal); D63.1 Anemia in chronic kidney disease | CPT/HCPCS: 85014; 85018 ==

== ENCOUNTER 2021-10-01 07:45 | Outpatient (CLI) | payer OTHER | END 2021-10-01 18:47 | disposition home or self-care (01) | LOC: LAB 07:45 | PROVIDERS: ATTEND Internal Medicine Endocrinology, Diabetes & Metabolism | DX: N18.9 Chronic kidney disease, unspecified (principal); D63.1 Anemia in chronic kidney disease | CPT/HCPCS: 85014; 85018 ==

== ENCOUNTER 2021-10-03 07:47 | Outpatient (CLI) | payer OTHER | END 2021-10-03 19:21 | disposition home or self-care (01) | LOC: LAB 07:47 | PROVIDERS: ATTEND Internal Medicine Endocrinology, Diabetes & Metabolism | DX: I50.9 Heart failure, unspecified (principal); I48.20 Chronic atrial fibrillation, unspecified | CPT/HCPCS: 80162 ==

== ENCOUNTER 2021-10-08 07:32 | Outpatient (CLI) | payer OTHER | END 2021-10-08 19:48 | disposition home or self-care (01) | LOC: LAB 07:32 | PROVIDERS: ATTEND Internal Medicine Endocrinology, Diabetes & Metabolism | DX: D64.89 Other specified anemias (principal) | CPT/HCPCS: 85014; 85018 ==

== ENCOUNTER 2021-10-11 14:37 | Inpatient (IN) | payer OTHER | END 2021-11-10 10:36 | disposition still patient (30) | LOC: PAVC 14:37 | PROVIDERS: ADMIT Internal Medicine Endocrinology, Diabetes & Metabolism; ATTEND Internal Medicine Endocrinology, Diabetes & Metabolism ==

== ENCOUNTER 2021-10-15 06:01 | Outpatient (CLI) | payer OTHER | END 2021-10-15 18:50 | disposition home or self-care (01) | LOC: LAB 06:01 | PROVIDERS: ATTEND Internal Medicine Endocrinology, Diabetes & Metabolism | DX: N18.9 Chronic kidney disease, unspecified (principal); D63.1 Anemia in chronic kidney disease | CPT/HCPCS: 36415; 85014; 85018 ==

== ENCOUNTER 2021-10-22 07:57 | Outpatient (CLI) | payer OTHER | END 2021-10-22 19:20 | disposition home or self-care (01) | LOC: LAB 07:57 | PROVIDERS: ATTEND Internal Medicine Endocrinology, Diabetes & Metabolism | DX: D64.89 Other specified anemias (principal); D63.1 Anemia in chronic kidney disease; N18.9 Chronic kidney disease, unspecified | CPT/HCPCS: 85014; 85018 ==

== ENCOUNTER 2021-10-29 06:36 | Outpatient (CLI) | payer OTHER | END 2021-10-29 20:18 | disposition home or self-care (01) | LOC: LAB 06:36 | PROVIDERS: ATTEND Internal Medicine Endocrinology, Diabetes & Metabolism | DX: D64.89 Other specified anemias (principal); D63.1 Anemia in chronic kidney disease; N18.9 Chronic kidney disease, unspecified | CPT/HCPCS: 85014; 85018 ==

== ENCOUNTER 2021-11-03 13:18 | Outpatient (CLI) | payer OTHER | END 2021-11-03 19:21 | disposition home or self-care (01) | LOC: LAB 13:18 | PROVIDERS: ATTEND Internal Medicine Endocrinology, Diabetes & Metabolism | DX: I50.9 Heart failure, unspecified (principal) | CPT/HCPCS: 80162 ==

== ENCOUNTER 2021-11-05 06:00 | Outpatient (CLI) | payer OTHER | END 2021-11-05 19:58 | disposition home or self-care (01) | LOC: LAB 06:00 | PROVIDERS: ATTEND Internal Medicine Endocrinology, Diabetes & Metabolism | DX: N18.9 Chronic kidney disease, unspecified (principal); D63.1 Anemia in chronic kidney disease | CPT/HCPCS: 85014; 85018 ==

== ENCOUNTER 2021-11-10 13:53 | Inpatient (IN) | payer OTHER | END 2021-12-11 12:12 | disposition still patient (30) | LOC: PAVC 13:53 | PROVIDERS: ADMIT Internal Medicine Endocrinology, Diabetes & Metabolism; ATTEND Internal Medicine Endocrinology, Diabetes & Metabolism ==

== ENCOUNTER 2021-11-12 07:38 | Outpatient (CLI) | payer OTHER | END 2021-11-12 20:36 | disposition home or self-care (01) | LOC: LAB 07:38 | PROVIDERS: ATTEND Internal Medicine Endocrinology, Diabetes & Metabolism | DX: D64.89 Other specified anemias (principal); D63.1 Anemia in chronic kidney disease; N18.9 Chronic kidney disease, unspecified | CPT/HCPCS: 85014; 85018 ==

== ENCOUNTER 2021-11-19 08:06 | Outpatient (CLI) | payer OTHER | END 2021-11-19 18:55 | disposition home or self-care (01) | LOC: LAB 08:06 | PROVIDERS: ATTEND Internal Medicine Endocrinology, Diabetes & Metabolism | DX: D64.89 Other specified anemias (principal); D63.1 Anemia in chronic kidney disease; N18.9 Chronic kidney disease, unspecified | CPT/HCPCS: 85014; 85018 ==

== ENCOUNTER 2021-11-26 07:32 | Outpatient (CLI) | payer OTHER | END 2021-11-26 20:39 | disposition home or self-care (01) | LOC: LAB 07:32 | PROVIDERS: ATTEND Internal Medicine Endocrinology, Diabetes & Metabolism | DX: N18.9 Chronic kidney disease, unspecified (principal); D63.1 Anemia in chronic kidney disease; D64.89 Other specified anemias | CPT/HCPCS: 85014; 85018 ==

== ENCOUNTER 2021-12-03 05:25 | Outpatient (CLI) | payer OTHER | END 2021-12-03 18:55 | disposition home or self-care (01) | LOC: LAB 05:25 | PROVIDERS: ATTEND Internal Medicine Endocrinology, Diabetes & Metabolism | DX: I48.20 Chronic atrial fibrillation, unspecified (principal); D63.1 Anemia in chronic kidney disease; N18.9 Chronic kidney disease, unspecified | CPT/HCPCS: 36415; 80162; 85014; 85018 ==

== ENCOUNTER 2021-12-10 06:04 | Outpatient (CLI) | payer OTHER | END 2021-12-10 19:31 | disposition home or self-care (01) | LOC: LAB 06:04 | PROVIDERS: ATTEND Internal Medicine Endocrinology, Diabetes & Metabolism | DX: N18.9 Chronic kidney disease, unspecified (principal); D63.1 Anemia in chronic kidney disease | CPT/HCPCS: 85014; 85018 ==

== ENCOUNTER 2021-12-11 12:39 | Inpatient (IN) | payer OTHER | END 2022-01-10 15:28 | disposition still patient (30) | LOC: PAVC 12:39 | PROVIDERS: ADMIT Internal Medicine Endocrinology, Diabetes & Metabolism; ATTEND Internal Medicine Endocrinology, Diabetes & Metabolism ==

== ENCOUNTER 2021-12-17 07:39 | Outpatient (CLI) | payer OTHER | END 2021-12-17 19:36 | disposition home or self-care (01) | LOC: LAB 07:39 | PROVIDERS: ATTEND Internal Medicine Endocrinology, Diabetes & Metabolism | DX: D64.89 Other specified anemias (principal); D63.1 Anemia in chronic kidney disease; N18.9 Chronic kidney disease, unspecified | CPT/HCPCS: 85014; 85018 ==

== ENCOUNTER 2021-12-24 08:40 | Outpatient (CLI) | payer OTHER | END 2021-12-24 19:58 | disposition home or self-care (01) | LOC: LAB 08:40 | PROVIDERS: ATTEND Internal Medicine Endocrinology, Diabetes & Metabolism | DX: D64.89 Other specified anemias (principal); D63.1 Anemia in chronic kidney disease; N18.9 Chronic kidney disease, unspecified | CPT/HCPCS: 85014; 85018 ==

== ENCOUNTER 2021-12-31 05:54 | Outpatient (CLI) | payer OTHER | END 2021-12-31 20:21 | disposition home or self-care (01) | LOC: LAB 05:54 | PROVIDERS: ATTEND Internal Medicine Endocrinology, Diabetes & Metabolism | DX: N18.9 Chronic kidney disease, unspecified (principal); D63.1 Anemia in chronic kidney disease | CPT/HCPCS: 85014; 85018 ==

== ENCOUNTER 2022-01-03 05:46 | Outpatient (CLI) | payer OTHER | END 2022-01-03 20:04 | disposition home or self-care (01) | LOC: LAB 05:46 | PROVIDERS: ATTEND Internal Medicine Endocrinology, Diabetes & Metabolism | DX: I50.9 Heart failure, unspecified (principal) | CPT/HCPCS: 80162 ==

== ENCOUNTER 2022-01-07 06:21 | Outpatient (CLI) | payer OTHER | END 2022-01-07 19:34 | disposition home or self-care (01) | LOC: LAB 06:21 | PROVIDERS: ATTEND Internal Medicine Endocrinology, Diabetes & Metabolism | DX: N18.9 Chronic kidney disease, unspecified (principal); D63.1 Anemia in chronic kidney disease | CPT/HCPCS: 85014; 85018 ==

== ENCOUNTER 2022-01-10 15:54 | Inpatient (IN) | payer OTHER | END 2022-02-10 10:49 | disposition still patient (30) | LOC: PAVC 15:54 | PROVIDERS: ADMIT Internal Medicine Endocrinology, Diabetes & Metabolism; ATTEND Internal Medicine Endocrinology, Diabetes & Metabolism ==

== ENCOUNTER 2022-01-14 05:25 | Outpatient (CLI) | payer OTHER ==
[2022-01-14 07:09] LABS: PLATELET COUNT 242 K/uL (142-355)
[2022-01-14 07:52] LABS: POTASSIUM 4.5 mmol/L (3.6-5.2)
== END 2022-01-14 19:32 | disposition home or self-care (01) ==
LOC: LAB 05:25
PROVIDERS: ATTEND Internal Medicine Endocrinology, Diabetes & Metabolism
DX: I50.9 Heart failure, unspecified (principal); D63.1 Anemia in chronic kidney disease; N18.9 Chronic kidney disease, unspecified
CPT/HCPCS: 80053; 84443; 85027

== ENCOUNTER 2022-01-21 06:01 | Outpatient (CLI) | payer OTHER ==
[2022-01-21 08:26] LABS: POTASSIUM 4.1 mmol/L (3.6-5.2)
== END 2022-01-21 20:18 | disposition home or self-care (01) ==
LOC: LAB 06:01
PROVIDERS: ATTEND Internal Medicine Endocrinology, Diabetes & Metabolism
DX: R79.89 Other specified abnormal findings of blood chemistry (principal); D63.1 Anemia in chronic kidney disease; N18.9 Chronic kidney disease, unspecified
CPT/HCPCS: 80048; 85014; 85018

== ENCOUNTER 2022-01-28 05:43 | Outpatient (CLI) | payer OTHER | END 2022-01-28 18:50 | disposition home or self-care (01) | LOC: LAB 05:43 | PROVIDERS: ATTEND Internal Medicine Endocrinology, Diabetes & Metabolism | DX: N18.9 Chronic kidney disease, unspecified (principal); D63.1 Anemia in chronic kidney disease | CPT/HCPCS: 85014; 85018 ==

== ENCOUNTER 2022-02-04 06:10 | Outpatient (CLI) | payer OTHER | END 2022-02-04 20:47 | disposition home or self-care (01) | LOC: LAB 06:10 | PROVIDERS: ATTEND Internal Medicine Endocrinology, Diabetes & Metabolism | DX: I48.20 Chronic atrial fibrillation, unspecified (principal); D63.1 Anemia in chronic kidney disease; N18.9 Chronic kidney disease, unspecified | CPT/HCPCS: 80162; 85014; 85018 ==

== ENCOUNTER 2022-02-10 14:02 | Inpatient (IN) | payer OTHER | END 2022-03-13 09:26 | disposition still patient (30) | LOC: PAVC 14:02 | PROVIDERS: ADMIT Internal Medicine Endocrinology, Diabetes & Metabolism; ATTEND Internal Medicine Endocrinology, Diabetes & Metabolism ==

== ENCOUNTER 2022-02-11 09:52 | Outpatient (CLI) | payer OTHER ==
[2022-02-11 10:17] LABS: PLATELET COUNT 238 K/uL (142-355)
== END 2022-02-11 19:06 | disposition home or self-care (01) ==
LOC: LAB 09:52
PROVIDERS: ATTEND Internal Medicine Endocrinology, Diabetes & Metabolism
DX: D64.89 Other specified anemias (principal); D63.1 Anemia in chronic kidney disease; N18.9 Chronic kidney disease, unspecified
CPT/HCPCS: 85027

== ENCOUNTER 2022-02-18 07:34 | Outpatient (CLI) | payer OTHER | END 2022-02-18 21:34 | disposition home or self-care (01) | LOC: LAB 07:34 | PROVIDERS: ATTEND Internal Medicine Endocrinology, Diabetes & Metabolism | DX: D64.89 Other specified anemias (principal); D63.1 Anemia in chronic kidney disease; N18.9 Chronic kidney disease, unspecified | CPT/HCPCS: 85014; 85018 ==

== ENCOUNTER 2022-02-21 06:46 | Emergency (ER) | payer OTHER ==
[~2022-02-21] VITALS: Ht 185.4 cm; Wt 78.5 kg
[2022-02-21 06:50] VITALS: TEMP 98.8
[2022-02-21 07:43] LABS: PLATELET COUNT 219 K/uL (142-355)
[2022-02-21 07:56] LABS: POTASSIUM 4.2 mmol/L (3.6-5.2)
[2022-02-21 11:30] VITALS: BP 133/37
== END 2022-02-21 11:30 | disposition short-term general hospital (02) ==
LOC: ED 06:46
PROVIDERS: Emergency Medicine Emergency Medical Services
DX: T82.897A Other specified complication of cardiac prosthetic devices, implants and grafts, initial encounter (principal); Z95.810 Presence of automatic (implantable) cardiac defibrillator; I50.9 Heart failure, unspecified; Y83.8 Other surgical procedures as the cause of abnormal reaction of the patient, or of later complication, without mention of misadventure at the time of the procedure; Y92.89 Other specified places as the place of occurrence of the external cause
CPT/HCPCS: 36415; 80053; 80162; 83735; 83880; 84484; 85027; 85610; 85730; 93005; 96365; 96375; 99285; J1644

== ENCOUNTER 2022-03-04 07:41 | Outpatient (CLI) | payer OTHER | END 2022-03-04 19:21 | disposition home or self-care (01) | LOC: LAB 07:41 | PROVIDERS: ATTEND Internal Medicine Endocrinology, Diabetes & Metabolism | DX: D64.89 Other specified anemias (principal) | CPT/HCPCS: 85014; 85018 ==

== ENCOUNTER 2022-03-09 16:48 | Emergency (ER) | payer OTHER ==
[~2022-03-09] VITALS: Ht 185.4 cm; Wt 78.5 kg
[2022-03-09 19:00] LABS: PLATELET COUNT 291 K/uL (142-355)
[2022-03-09 19:06] LABS: POTASSIUM 5.3 mmol/L (3.6-5.2)
[2022-03-09 19:19] LABS: PARTIAL THROMBOPLASTIN TIME 28.3 SECONDS (24.5-33.6)
== END 2022-03-09 22:45 | disposition short-term general hospital (02) ==
LOC: ED 16:48
PROVIDERS: Family Medicine
DX: T82.198A Other mechanical complication of other cardiac electronic device, initial encounter (principal); U07.1 COVID-19; N18.9 Chronic kidney disease, unspecified; Z95.0 Presence of cardiac pacemaker; Z98.890 Other specified postprocedural states; Y71.2 Prosthetic and other implants, materials and accessory cardiovascular devices associated with adverse incidents; Y92.89 Other specified places as the place of occurrence of the external cause
CPT/HCPCS: 36415; 80053; 80162; 82550; 84484; 85027; 85610; 85730; 87635; 93005; 96360; 99285; U0003

== ENCOUNTER 2022-03-13 12:08 | Inpatient (IN) | payer OTHER | END 2022-04-10 15:18 | disposition still patient (30) | LOC: PAVC 12:08 | PROVIDERS: ADMIT Internal Medicine Endocrinology, Diabetes & Metabolism; ATTEND Internal Medicine Endocrinology, Diabetes & Metabolism ==

== ENCOUNTER 2022-03-18 07:36 | Outpatient (CLI) | payer OTHER | END 2022-03-18 19:26 | disposition home or self-care (01) | LOC: LAB 07:36 | PROVIDERS: ATTEND Internal Medicine Endocrinology, Diabetes & Metabolism | DX: D64.89 Other specified anemias (principal); D63.1 Anemia in chronic kidney disease; N18.9 Chronic kidney disease, unspecified | CPT/HCPCS: 85014; 85018 ==

== ENCOUNTER 2022-03-22 11:15 | Outpatient (CLI) | payer OTHER | END 2022-03-22 19:25 | disposition home or self-care (01) | LOC: LAB 11:15 | PROVIDERS: ATTEND Internal Medicine Endocrinology, Diabetes & Metabolism | DX: D51.8 Other vitamin B12 deficiency anemias (principal) | CPT/HCPCS: 82607 ==

== ENCOUNTER 2022-03-25 07:40 | Outpatient (CLI) | payer OTHER | END 2022-03-25 19:02 | disposition home or self-care (01) | LOC: LAB 07:40 | PROVIDERS: ATTEND Internal Medicine Endocrinology, Diabetes & Metabolism | DX: D64.89 Other specified anemias (principal); D63.1 Anemia in chronic kidney disease; N18.9 Chronic kidney disease, unspecified | CPT/HCPCS: 85014; 85018 ==

== ENCOUNTER → 2022-04-01 | Outpatient (CLI) | payer OTHER | LOC: LAB 07:37 | PROVIDERS: ATTEND Internal Medicine Endocrinology, Diabetes & Metabolism | DX: D64.89 Other specified anemias (principal); D63.1 Anemia in chronic kidney disease; N18.9 Chronic kidney disease, unspecified | CPT/HCPCS: 85014; 85018 ==

== ENCOUNTER 2022-04-08 07:42 | Outpatient (CLI) | payer OTHER | END 2022-04-08 18:54 | disposition home or self-care (01) | LOC: LAB 07:42 | PROVIDERS: ATTEND Internal Medicine Endocrinology, Diabetes & Metabolism | DX: D64.89 Other specified anemias (principal); D63.1 Anemia in chronic kidney disease; N18.9 Chronic kidney disease, unspecified | CPT/HCPCS: 85014; 85018 ==

== ENCOUNTER 2022-04-10 15:57 | Inpatient (IN) | payer OTHER | END 2022-05-11 12:50 | disposition still patient (30) | LOC: PAVC 15:57 | PROVIDERS: ADMIT Internal Medicine Endocrinology, Diabetes & Metabolism; ATTEND Internal Medicine Endocrinology, Diabetes & Metabolism ==

== ENCOUNTER 2022-04-15 06:12 | Outpatient (CLI) | payer OTHER | END 2022-04-15 19:40 | disposition home or self-care (01) | LOC: LAB 06:12 | PROVIDERS: ATTEND Internal Medicine Endocrinology, Diabetes & Metabolism | DX: N18.9 Chronic kidney disease, unspecified (principal); D63.1 Anemia in chronic kidney disease | CPT/HCPCS: 85014; 85018 ==

== ENCOUNTER 2022-04-22 12:30 | Outpatient (CLI) | payer OTHER | END 2022-04-22 19:05 | disposition home or self-care (01) | LOC: LAB 12:30 | PROVIDERS: ATTEND Internal Medicine Endocrinology, Diabetes & Metabolism | DX: D64.89 Other specified anemias (principal); D63.1 Anemia in chronic kidney disease; N18.9 Chronic kidney disease, unspecified | CPT/HCPCS: 85014; 85018 ==

== ENCOUNTER 2022-04-29 06:13 | Outpatient (CLI) | payer OTHER | END 2022-04-29 19:10 | disposition home or self-care (01) | LOC: LAB 06:13 | PROVIDERS: ATTEND Internal Medicine Endocrinology, Diabetes & Metabolism | DX: N18.9 Chronic kidney disease, unspecified (principal); D63.1 Anemia in chronic kidney disease | CPT/HCPCS: 36415; 85014; 85018 ==

== ENCOUNTER 2022-04-29 10:30 | Outpatient (CLI) | payer OTHER | END 2022-04-29 21:35 | disposition home or self-care (01) | LOC: US 10:30 | PROVIDERS: ATTEND Internal Medicine Endocrinology, Diabetes & Metabolism | DX: M79.662 Pain in left lower leg (principal); I70.92 Chronic total occlusion of artery of the extremities ==

== ENCOUNTER 2022-04-30 11:59 | Outpatient (CLI) | payer OTHER ==
[~2022-04-30] VITALS: Ht 185.4 cm; Wt 78.5 kg
[2022-04-30] VITALS (9 sets, daily range): BP systolic 101–122; BP diastolic 37–70; TEMP 97.6–98.6
== END 2022-04-30 19:11 | disposition home or self-care (01) ==
LOC: LAB 11:59 → INF 11:59
PROVIDERS: ATTEND Internal Medicine
DX: I70.213 Atherosclerosis of native arteries of extremities with intermittent claudication, bilateral legs (principal); D64.89 Other specified anemias
CPT/HCPCS: 36415; 36430; 86850; 86900; 86901; 86922; P9016

== ENCOUNTER 2022-05-06 06:08 | Outpatient (CLI) | payer OTHER | END 2022-05-06 18:55 | disposition home or self-care (01) | LOC: LAB 06:08 | PROVIDERS: ATTEND Internal Medicine Endocrinology, Diabetes & Metabolism | DX: N18.9 Chronic kidney disease, unspecified (principal); D63.1 Anemia in chronic kidney disease | CPT/HCPCS: 82728; 83540; 85014; 85018 ==

== ENCOUNTER 2022-05-07 11:40 | Emergency (ER) | payer OTHER ==
[~2022-05-07] VITALS: Ht 185.4 cm; Wt 72.6 kg
[2022-05-07 11:41] VITALS: BP 113/42; TEMP 98.4
[2022-05-07 12:57] LABS: POTASSIUM 4.3 mmol/L (3.6-5.2)
[2022-05-07 14:42] LABS: PLATELET COUNT 225 K/uL (142-355)
== END 2022-05-07 16:00 | disposition home or self-care (01) ==
LOC: ED 11:40
PROVIDERS: Emergency Medicine
PROC: 2Y41X5Z Packing of Nasal Region using Packing Material (ICD-10-PCS; principal; 2022-05-07)
DX: R04.0 Epistaxis (principal); J33.8 Other polyp of sinus; D68.8 Other specified coagulation defects
CPT/HCPCS: 80053; 85027; 85610; 85730; 93005; 99283

== ENCOUNTER 2022-05-08 10:10 | Emergency (ER) | payer OTHER ==
[~2022-05-08] VITALS: Ht 182.9 cm; Wt 72.6 kg
[2022-05-08 10:51] LABS: PLATELET COUNT 214 K/uL (142-355)
[2022-05-08 11:40] VITALS: BP 125/48; TEMP 98.1
== END 2022-05-08 11:40 | disposition home or self-care (01) ==
LOC: ED 10:10
PROVIDERS: Emergency Medicine Emergency Medical Services
PROC: 2Y51X5Z Removal of Nasal Packing Material (ICD-10-PCS; principal; 2022-05-08)
PROC: 2Y41X5Z Packing of Nasal Region using Packing Material (ICD-10-PCS; 2022-05-08)
DX: R04.0 Epistaxis (principal)
CPT/HCPCS: 85027; 85610; 99283

== ENCOUNTER 2022-05-09 01:05 | Emergency (ER) | payer OTHER ==
[~2022-05-09] VITALS: Ht 182.9 cm; Wt 72.6 kg
[2022-05-09 01:05] VITALS: TEMP 98.8
[2022-05-09 02:24] LABS: PLATELET COUNT 233 K/uL (142-355)
[2022-05-09 02:45] LABS: POTASSIUM 4.7 mmol/L (3.6-5.2)
[2022-05-09 05:10] VITALS: BP 119/68
== END 2022-05-09 05:10 | disposition short-term general hospital (02) ==
LOC: ED 01:05
PROVIDERS: Emergency Medicine Emergency Medical Services
DX: K92.2 Gastrointestinal hemorrhage, unspecified (principal); Z98.890 Other specified postprocedural states
CPT/HCPCS: 36415; 80053; 82150; 82272; 83690; 85027; 85610; 96361; 96374; 99284; J3490

== ENCOUNTER 2022-05-11 13:08 | Inpatient (IN) | payer OTHER | END 2022-06-10 16:41 | disposition still patient (30) | LOC: PAVC 13:08 | PROVIDERS: ADMIT Internal Medicine Endocrinology, Diabetes & Metabolism; ATTEND Internal Medicine Endocrinology, Diabetes & Metabolism ==

== ENCOUNTER 2022-05-13 07:39 | Outpatient (CLI) | payer OTHER | END 2022-05-13 18:53 | disposition home or self-care (01) | LOC: LAB 07:39 | PROVIDERS: ATTEND Internal Medicine Endocrinology, Diabetes & Metabolism | DX: D64.89 Other specified anemias (principal); D63.1 Anemia in chronic kidney disease; N18.9 Chronic kidney disease, unspecified | CPT/HCPCS: 85014; 85018 ==

== ENCOUNTER 2022-05-14 11:09 | Emergency (ER) | payer OTHER ==
[~2022-05-14] VITALS: Ht 182.9 cm; Wt 90.7 kg
[2022-05-14 11:09] VITALS: BP 110/65; TEMP 98.1
== END 2022-05-14 11:15 ==
LOC: ED 11:09
PROC: 2Y51X5Z Removal of Nasal Packing Material (ICD-10-PCS; principal; 2022-05-14)
DX: R04.0 Epistaxis (principal); Z46.89 Encounter for fitting and adjustment of other specified devices
CPT/HCPCS: 99282

== ENCOUNTER 2022-05-20 07:33 | Outpatient (CLI) | payer OTHER | END 2022-05-20 18:59 | disposition home or self-care (01) | LOC: LAB 07:33 | PROVIDERS: ATTEND Internal Medicine Endocrinology, Diabetes & Metabolism | DX: D64.89 Other specified anemias (principal); D63.1 Anemia in chronic kidney disease; N18.9 Chronic kidney disease, unspecified | CPT/HCPCS: 36415; 85014; 85018 ==

== ENCOUNTER 2022-05-27 04:52 | Outpatient (CLI) | payer OTHER | END 2022-05-27 21:03 | LOC: LAB 04:52 | PROVIDERS: ATTEND Internal Medicine Endocrinology, Diabetes & Metabolism | DX: N18.9 Chronic kidney disease, unspecified (principal); D63.1 Anemia in chronic kidney disease | CPT/HCPCS: 36415; 85014; 85018 ==

== ENCOUNTER 2022-05-30 13:35 | Outpatient (CLI) | payer OTHER | END 2022-05-30 17:00 | disposition home or self-care (01) | LOC: US 13:35 | PROVIDERS: ATTEND Internal Medicine Endocrinology, Diabetes & Metabolism | DX: Z03.89 Encounter for observation for other suspected diseases and conditions ruled out (principal) ==

== ENCOUNTER 2022-06-03 07:27 | Outpatient (CLI) | payer OTHER | END 2022-06-03 18:56 | disposition home or self-care (01) | LOC: LAB 07:27 | PROVIDERS: ATTEND Internal Medicine Endocrinology, Diabetes & Metabolism | DX: D64.89 Other specified anemias (principal); D63.1 Anemia in chronic kidney disease; N18.9 Chronic kidney disease, unspecified | CPT/HCPCS: 85014; 85018 ==

== ENCOUNTER 2022-06-10 07:32 | Outpatient (CLI) | payer OTHER | END 2022-06-10 19:32 | disposition home or self-care (01) | LOC: LAB 07:32 | PROVIDERS: ATTEND Internal Medicine Endocrinology, Diabetes & Metabolism | DX: N18.9 Chronic kidney disease, unspecified (principal); D63.1 Anemia in chronic kidney disease | CPT/HCPCS: 85014; 85018 ==

== ENCOUNTER 2022-06-10 17:24 | Inpatient (IN) | payer OTHER | END 2022-07-11 11:57 | disposition still patient (30) | LOC: PAVC 17:24 | PROVIDERS: ADMIT Internal Medicine Endocrinology, Diabetes & Metabolism; ATTEND Internal Medicine Endocrinology, Diabetes & Metabolism ==

== ENCOUNTER 2022-06-24 05:45 | Outpatient (CLI) | payer OTHER | END 2022-06-24 20:01 | disposition home or self-care (01) | LOC: LAB 05:45 | PROVIDERS: ATTEND Internal Medicine Endocrinology, Diabetes & Metabolism | DX: N18.9 Chronic kidney disease, unspecified (principal); D63.1 Anemia in chronic kidney disease | CPT/HCPCS: 36415; 85014; 85018 ==

== ENCOUNTER 2022-06-26 08:57 | Outpatient (CLI) | payer OTHER ==
[2022-06-26] VITALS (7 sets, daily range): BP systolic 111–124; BP diastolic 48–63; TEMP 98–98.6
[~2022-06-26] VITALS: Ht 182.9 cm; Wt 73.5 kg
== END 2022-06-26 20:35 ==
LOC: INF 08:57
PROVIDERS: ATTEND Internal Medicine
DX: D64.89 Other specified anemias (principal)
CPT/HCPCS: 36415; 36430; 85014; 85018; 86850; 86900; 86901; 86922; P9016

== ENCOUNTER 2022-07-08 07:22 | Outpatient (CLI) | payer OTHER | END 2022-07-08 22:46 | LOC: LAB 07:22 | PROVIDERS: ATTEND Internal Medicine Endocrinology, Diabetes & Metabolism | DX: N18.9 Chronic kidney disease, unspecified (principal); D63.1 Anemia in chronic kidney disease | CPT/HCPCS: 36415; 85014; 85018 ==

== ENCOUNTER 2022-07-11 12:11 | Inpatient (IN) | payer OTHER | END 2022-08-10 17:41 | disposition still patient (30) | LOC: PAVC 12:11 | PROVIDERS: ADMIT Internal Medicine Endocrinology, Diabetes & Metabolism; ATTEND Internal Medicine Endocrinology, Diabetes & Metabolism ==

== ENCOUNTER 2022-07-15 08:29 | Outpatient (CLI) | payer OTHER ==
[2022-07-15 09:39] LABS: POTASSIUM 4.9 mmol/L (3.6-5.2)
[2022-07-15 10:34] LABS: PLATELET COUNT 252 K/uL (142-355)
== END 2022-07-15 19:19 | disposition home or self-care (01) ==
LOC: LAB 08:29
PROVIDERS: ATTEND Internal Medicine Endocrinology, Diabetes & Metabolism
DX: N40.1 Benign prostatic hyperplasia with lower urinary tract symptoms (principal); I50.9 Heart failure, unspecified; E11.9 Type 2 diabetes mellitus without complications; D64.89 Other specified anemias; N18.9 Chronic kidney disease, unspecified; I11.0 Hypertensive heart disease with heart failure; I12.9 Hypertensive chronic kidney disease with stage 1 through stage 4 chronic kidney disease, or unspecified chronic kidney disease; E55.9 Vitamin D deficiency, unspecified
CPT/HCPCS: 80053; 82306; 82607; 82728; 83540; 84153; 85027

== ENCOUNTER 2022-07-16 10:51 | Outpatient (CLI) | payer OTHER ==
[~2022-07-16] VITALS: Ht 182.9 cm; Wt 79.4 kg
[2022-07-16 10:56] VITALS: BP 128/60; TEMP 98.3
== END 2022-07-16 18:56 | disposition home or self-care (01) ==
LOC: INF 10:51
PROVIDERS: ATTEND Internal Medicine
DX: R79.89 Other specified abnormal findings of blood chemistry (principal)
CPT/HCPCS: 96365; 96366

== ENCOUNTER 2022-07-17 10:03 | Outpatient (CLI) | payer OTHER ==
[~2022-07-17] VITALS: Ht 182.9 cm; Wt 79.4 kg
[2022-07-17 10:02] VITALS: BP 123/60; TEMP 98.1
== END 2022-07-17 19:20 | disposition home or self-care (01) ==
LOC: INF 10:03
PROVIDERS: ATTEND Internal Medicine
DX: R79.89 Other specified abnormal findings of blood chemistry (principal)
CPT/HCPCS: 96365; 96366

== ENCOUNTER 2022-07-18 09:57 | Outpatient (CLI) | payer OTHER ==
[~2022-07-18] VITALS: Ht 182.9 cm; Wt 79.4 kg
[2022-07-18 09:55] VITALS: BP 135/60; TEMP 97.7
== END 2022-07-18 19:20 | disposition home or self-care (01) ==
LOC: INF 09:57
PROVIDERS: ATTEND Internal Medicine
DX: R79.89 Other specified abnormal findings of blood chemistry (principal)
CPT/HCPCS: 96365; 96366

== ENCOUNTER 2022-07-22 05:40 | Outpatient (CLI) | payer OTHER | END 2022-07-22 18:48 | disposition home or self-care (01) | LOC: LAB 05:40 | PROVIDERS: ATTEND Internal Medicine Endocrinology, Diabetes & Metabolism | DX: N18.9 Chronic kidney disease, unspecified (principal); D63.1 Anemia in chronic kidney disease | CPT/HCPCS: 36415; 85014; 85018 ==

== ENCOUNTER 2022-08-05 04:57 | Outpatient (CLI) | payer OTHER | END 2022-08-05 19:18 | disposition home or self-care (01) | LOC: LAB 04:57 | PROVIDERS: ATTEND Internal Medicine | DX: N18.9 Chronic kidney disease, unspecified (principal); D63.1 Anemia in chronic kidney disease | CPT/HCPCS: 36415; 85014; 85018 ==

== ENCOUNTER 2022-08-07 00:40 | Outpatient (CLI) | payer OTHER ==
[2022-08-07 02:01] LABS: PLATELET COUNT 222 K/uL (142-355)
== END 2022-08-07 18:55 | disposition home or self-care (01) ==
LOC: LAB 00:40
PROVIDERS: ATTEND Internal Medicine
DX: N18.9 Chronic kidney disease, unspecified (principal); D63.1 Anemia in chronic kidney disease
CPT/HCPCS: 36415; 85027

== ENCOUNTER 2022-08-19 07:32 | Outpatient (CLI) | payer OTHER | END 2022-08-19 20:45 | disposition home or self-care (01) | LOC: LAB 07:32 | PROVIDERS: ATTEND Internal Medicine | DX: N18.9 Chronic kidney disease, unspecified (principal); D63.1 Anemia in chronic kidney disease | CPT/HCPCS: 85014; 85018 ==

== ENCOUNTER 2022-08-21 07:25 | Outpatient (CLI) | payer OTHER ==
[2022-08-21 07:50] LABS: PLATELET COUNT 322 K/uL (142-355)
== END 2022-08-21 20:20 | disposition home or self-care (01) ==
LOC: LAB 07:25
PROVIDERS: ATTEND Internal Medicine
DX: D64.89 Other specified anemias (principal); D63.1 Anemia in chronic kidney disease; N18.9 Chronic kidney disease, unspecified
CPT/HCPCS: 82272; 85027

== ENCOUNTER 2022-08-22 09:26 | Outpatient (CLI) | payer OTHER | END 2022-08-22 19:21 | disposition home or self-care (01) | LOC: LAB 09:26 | PROVIDERS: ATTEND Internal Medicine | DX: R19.5 Other fecal abnormalities (principal) ==

== ENCOUNTER 2022-08-28 05:51 | Outpatient (CLI) | payer OTHER ==
[2022-08-28 07:07] LABS: PLATELET COUNT 258 K/uL (142-355)
== END 2022-08-28 19:54 | disposition home or self-care (01) ==
LOC: LAB 05:51
PROVIDERS: ATTEND Internal Medicine
DX: R79.89 Other specified abnormal findings of blood chemistry (principal)
CPT/HCPCS: 85027

== ENCOUNTER 2022-09-10 13:12 | Outpatient (CLI) | payer OTHER | END 2022-09-10 20:26 | disposition home or self-care (01) | LOC: US 13:12 | PROVIDERS: ATTEND Internal Medicine | DX: M79.671 Pain in right foot (principal) ==

== ENCOUNTER 2022-09-11 15:27 | Outpatient (CLI) | payer OTHER ==
[2022-09-11 16:09] LABS: PLATELET COUNT 221 K/uL (142-355)
== END 2022-09-11 19:11 | disposition home or self-care (01) ==
LOC: LAB 15:27
PROVIDERS: ATTEND Internal Medicine
DX: D64.89 Other specified anemias (principal); D63.1 Anemia in chronic kidney disease; N18.9 Chronic kidney disease, unspecified
CPT/HCPCS: 85027

== ENCOUNTER 2022-09-12 10:24 | Outpatient (CLI) | payer OTHER ==
[~2022-09-12] VITALS: Ht 182.9 cm; Wt 79.4 kg
[2022-09-12] VITALS (9 sets, daily range): BP systolic 102–123; BP diastolic 41–59; TEMP 97.4–98.4
== END 2022-09-12 21:47 | disposition home or self-care (01) ==
LOC: INF 10:24
PROVIDERS: ATTEND Internal Medicine
DX: D64.89 Other specified anemias (principal)
CPT/HCPCS: 36415; 36430; 86850; 86900; 86901; 86922; P9016

== ENCOUNTER 2022-09-13 00:50 | Outpatient (CLI) | payer OTHER ==
[2022-09-13 03:19] LABS: PLATELET COUNT 218 K/uL (142-355)
== END 2022-09-13 18:58 | disposition home or self-care (01) ==
LOC: LAB 00:50
PROVIDERS: ATTEND Internal Medicine
DX: N18.9 Chronic kidney disease, unspecified (principal); D63.1 Anemia in chronic kidney disease
CPT/HCPCS: 85027

== ENCOUNTER → 2022-09-16 | Outpatient (CLI) | payer OTHER | LOC: LAB 09:14 | PROVIDERS: ATTEND Internal Medicine | DX: N18.9 Chronic kidney disease, unspecified (principal); D63.1 Anemia in chronic kidney disease | CPT/HCPCS: 85014; 85018 ==

== ENCOUNTER 2022-09-30 07:32 | Outpatient (CLI) | payer OTHER | END 2022-09-30 19:38 | disposition home or self-care (01) | LOC: LAB 07:32 | PROVIDERS: ATTEND Internal Medicine | DX: N18.9 Chronic kidney disease, unspecified (principal); D63.1 Anemia in chronic kidney disease | CPT/HCPCS: 85014; 85018 ==

== ENCOUNTER 2022-10-07 05:10 | Outpatient (CLI) | payer OTHER ==
[2022-10-07 05:40] LABS: PLATELET COUNT 234 K/uL (142-355)
== END 2022-10-07 23:59 | disposition home or self-care (01) ==
LOC: LAB 05:10
PROVIDERS: ATTEND Internal Medicine
DX: N18.9 Chronic kidney disease, unspecified (principal); D63.1 Anemia in chronic kidney disease
CPT/HCPCS: 36415; 85027

== ENCOUNTER 2022-10-09 11:26 | Outpatient (CLI) | payer OTHER ==
[2022-10-09 17:24] LABS: PLATELET COUNT 288 K/uL (142-355)
[2022-10-09 17:35] LABS: POTASSIUM 4.2 mmol/L (3.6-5.2)
[2022-10-10] MEDS ORDERED: PACERONE200 MG PO (07:57)
[2022-10-10] MEDS ORDERED: LIPITOR80 MG PO (07:58)
[2022-10-10] MEDS ORDERED: GABA100C2 PO (08:04)
[2022-10-10] MEDS ORDERED: GABA300C2 PO (08:07)
[2022-10-10] MEDS ORDERED: SITA50TA2 PO (08:09)
[2022-10-10] MEDS ORDERED: CLOP75TA2 PO (08:12)
[2022-10-10] MEDS ORDERED: VITAMIN D2000 UNI2 PO (08:13)
[2022-10-10] MEDS ORDERED: ZINC220 M1 PO (08:14)
[2022-10-10] MEDS ORDERED: OXYB5TAB56 PO (08:15)
[2022-10-10] MEDS ORDERED: ENSURE PLUS PO (08:16)
[2022-10-10] MEDS ORDERED: FERROUS SULF325 MG PO (08:16)
[2022-10-10] MEDS ORDERED: MAGIC CUP PO (08:17)
[2022-10-10] MEDS ORDERED: HYDR5TAB9 PO (08:18)
[2022-10-10] MEDS ORDERED: ONDA4TAB3 PO (08:19)
[2022-10-10] MEDS ORDERED: TYLENOL PO (08:20)
== END 2022-10-09 19:18 | disposition home or self-care (01) ==
LOC: LAB 11:26
PROVIDERS: ATTEND Internal Medicine
DX: R41.82 Altered mental status, unspecified (principal); I95.9 Hypotension, unspecified
CPT/HCPCS: 80053; 85027

== ENCOUNTER 2022-10-09 18:25 | Inpatient (IN) | payer OTHER ==
[~2022-10-09] VITALS: Ht 154.9 cm; Wt 72.1 kg
[2022-10-09 18:30] VITALS: BP 105/48; TEMP 97.5
[2022-10-09 19:44] LABS: PLATELET COUNT 286 K/uL (142-355)
[2022-10-09 20:01] LABS: POTASSIUM 3.9 mmol/L (3.6-5.2)
[2022-10-10] VITALS (7 sets, daily range): BP systolic 97–113; BP diastolic 43–50; TEMP 97.5–98.5; Ht 154.9 cm; Wt 72.1 kg
[2022-10-10] MEDS ORDERED: PACERONE200 MG PO (07:57)
[2022-10-10] MEDS ORDERED: LIPITOR80 MG PO (07:58)
[2022-10-10] MEDS ORDERED: GABA100C2 PO (08:04)
[2022-10-10] MEDS ORDERED: GABA300C2 PO (08:07)
[2022-10-10] MEDS ORDERED: SITA50TA2 PO (08:09)
[2022-10-10 08:11] LABS: PLATELET COUNT 296 K/uL (142-355)
[2022-10-10] MEDS ORDERED: CLOP75TA2 PO (08:12)
[2022-10-10] MEDS ORDERED: VITAMIN D2000 UNI2 PO (08:13)
[2022-10-10] MEDS ORDERED: ZINC220 M1 PO (08:14)
[2022-10-10] MEDS ORDERED: OXYB5TAB56 PO (08:15)
[2022-10-10] MEDS ORDERED: ENSURE PLUS PO (08:16)
[2022-10-10] MEDS ORDERED: FERROUS SULF325 MG PO (08:16)
[2022-10-10] MEDS ORDERED: MAGIC CUP PO (08:17)
[2022-10-10] MEDS ORDERED: HYDR5TAB9 PO (08:18)
[2022-10-10] MEDS ORDERED: ONDA4TAB3 PO (08:19)
[2022-10-10] MEDS ORDERED: TYLENOL PO (08:20)
[2022-10-10 08:47] LABS: POTASSIUM 3.9 mmol/L (3.6-5.2)
[2022-10-11] VITALS: BP 105/34; TEMP 98.4
[2022-10-11 04:00] VITALS: BP 90/37; TEMP 98.2
[2022-10-11 07:59] LABS: PLATELET COUNT 280 K/uL (142-355)
[2022-10-11 08:00] VITALS: BP 113/51; TEMP 97.7
[2022-10-11 08:02] LABS: POTASSIUM 3.6 mmol/L (3.6-5.2)
[2022-10-11 11:59] VITALS: BP 105/47; TEMP 97.7
[2022-10-11 16:00] VITALS: BP 104/40; TEMP 97.7
[2022-10-11 20:10] VITALS: BP 88/42; TEMP 97.6
[2022-10-12] VITALS: BP 102/31; TEMP 96.9
[2022-10-12 04:00] VITALS: BP 86/35; TEMP 97.1
[2022-10-12 08:00] VITALS: BP 110/33; TEMP 97.6
[2022-10-12 08:50] LABS: PLATELET COUNT 306 K/uL (142-355)
[2022-10-12 12:00] VITALS: BP 113/42; TEMP 97.6
[2022-10-12 16:00] VITALS: BP 100/44; TEMP 97.6
[2022-10-12 20:00] VITALS: BP 99/43; TEMP 97.7
[2022-10-13 04:00] VITALS: BP 101/40; TEMP 97.7
[2022-10-13 08:00] VITALS: BP 89/33
[2022-10-13 09:53] LABS: PLATELET COUNT 313 K/uL (142-355)
[2022-10-13 09:54] LABS: POTASSIUM 4.4 mmol/L (3.6-5.2)
[2022-10-13 11:22] VITALS: BP 91/34
[2022-10-13 16:00] VITALS: BP 100/32; TEMP 94.3
[2022-10-13 20:00] VITALS: BP 81/30; TEMP 96
[2022-10-13 23:43] VITALS: BP 98/31; TEMP 96
[2022-10-14 03:54] VITALS: BP 78/30; TEMP 96.3
[2022-10-14 05:39] LABS: PLATELET COUNT 291 K/uL (142-355)
[2022-10-14 05:49] LABS: POTASSIUM 4.8 mmol/L (3.6-5.2)
[2022-10-14 08:00] VITALS: BP 87/36; TEMP 97.4
== END 2022-10-14 13:03 | disposition expired | DRG 296 ==
LOC: ED 18:25 → MED/SURG 22:10
PROVIDERS: Family Medicine; ADMIT Physician Assistant; ATTEND Internal Medicine Endocrinology, Diabetes & Metabolism
DX: I46.9 Cardiac arrest, cause unspecified (principal); A41.89 Other specified sepsis; G92.8 Other toxic encephalopathy; N30.00 Acute cystitis without hematuria; Z16.24 Resistance to multiple antibiotics; N17.8 Other acute kidney failure; A04.72 Enterocolitis due to Clostridium difficile, not specified as recurrent; B96.29 Other Escherichia coli [E. coli] as the cause of diseases classified elsewhere; R41.82 Altered mental status, unspecified; R94.5 Abnormal results of liver function studies; I95.89 Other hypotension; G89.4 Chronic pain syndrome; I50.9 Heart failure, unspecified; K21.9 Gastro-esophageal reflux disease without esophagitis; I48.91 Unspecified atrial fibrillation; Z79.01 Long term (current) use of anticoagulants; I11.0 Hypertensive heart disease with heart failure
CPT/HCPCS: 36415; 36416; 80048; 80053; 81000; 83735; 85007; 85027; 87015; 87045; 87077; 87086; 87088; 87186; 87324; 87449; 87899; 93005; 96361; 96365; 99284; J1956; J0696; J2060; J2185